=== PATIENT | male | born 1950 | race Caucasian/White ===

== ENCOUNTER 2020-06-06 21:34 | Emergency (ER) | payer SELFPAY ==
[~2020-06-06] VITALS: Ht 185.4 cm; Wt 70.0 kg
[2020-06-06] MEDS ORDERED: ACETAMINOPHEN 500MG TABLET PO ONE (22:30)
[2020-06-06 23:34] VITALS: BP 112/60
== END 2020-06-06 23:40 | disposition home or self-care (01) ==
LOC: ER 21:34
DX: R43.0 Anosmia (principal); R50.9 Fever, unspecified; Z20.828 Contact with and (suspected) exposure to other viral communicable diseases
CPT/HCPCS: 99282